=== PATIENT | male | born 1980 | race Two or more races ===

== ENCOUNTER 2023-09-21 16:22 | Emergency (ER) | payer OTHER ==
[~2023-09-21] VITALS: Ht 160 cm; Wt 68.0 kg
[2023-09-21 18:16] LABS: HEMATOCRIT 46.4 % (39.0-48.0); HEMOGLOBIN 15.3 g/dL (13-16.00); MEAN CELL VOLUME 84.4 fL (80.0-100.00); MEAN CORPUSCULAR HEMOGLOBIN 27.8 pg (27.00-32.0); MEAN CORPUSCULAR HGB CONC 32.9 g/dl (32.0-36.0); PLATELET COUNT 229 K/uL (150-450); RED BLOOD COUNT 5.49 M/uL (4.00-6.00); RED CELL DISTRIBUTION WIDTH 13.9 % (11.5-14.5)
[2023-09-21 18:34] LABS: CREATININE SERUM 0.82 mg/dL (0.70-1.30); GFR 102.54; POTASSIUM 4.58 mEq/L (3.5-5.1)
== END 2023-09-21 20:29 | disposition home or self-care (01) ==
LOC: ER
PROVIDERS: Nurse Practitioner Family
DX: R51.9 Headache, unspecified (principal); Z20.822 Contact with and (suspected) exposure to COVID-19